=== PATIENT | female | born 1950 | race African-American/Black ===

== ENCOUNTER 2016-07-30 11:07 | Outpatient (CLI) | payer MEDICARE, OTHER ==
[2016-07-30 13:05] LABS: Anion Gap 14 mmol/L (10-20); BUN (Urea Nitrogen) 37 mg/dL (9.8-20.1); Calc. Creatinine Clearance 0 mL/min (70-130); Calcium 8.7 mg/dL (7.8-10.44); Carbon Dioxide 29 mmol/L (23-31); Chloride 105 mmol/L (98-107); Estimated GFR-MDRD 25
== END 2016-07-30 11:08 | disposition home or self-care (01) ==
LOC: NAVSJIPCSP 11:07
PROVIDERS: ATTEND Internal Medicine Nephrology
DX: N18.4 Chronic kidney disease, stage 4 (severe) (principal)
CPT/HCPCS: 36415; 80048

== ENCOUNTER 2016-10-25 12:06 | Outpatient (CLI) | payer MEDICARE, MEDICAID ==
[2016-10-25 14:36] LABS: Anion Gap 16 mmol/L (10-20); BUN (Urea Nitrogen) 58 mg/dL (9.8-20.1); Calc. Creatinine Clearance 0 mL/min (70-130); Calcium 8.7 mg/dL (7.8-10.44); Carbon Dioxide 28 mmol/L (23-31); Chloride 101 mmol/L (98-107); Estimated GFR-MDRD 18; Glucose 96 mg/dL (80-115); Sodium 141 mmol/L (136-145)
== END 2016-10-25 12:07 | disposition home or self-care (01) ==
LOC: NAVSJIPCSP 12:06
PROVIDERS: ATTEND Internal Medicine Nephrology
DX: N18.4 Chronic kidney disease, stage 4 (severe) (principal)
CPT/HCPCS: 80048

== ENCOUNTER 2016-11-06 13:30 | Outpatient (CLI) | payer MEDICARE, OTHER ==
[2016-11-06 13:50] LABS: Anion Gap 17 mmol/L (10-20); BUN (Urea Nitrogen) 62 mg/dL (9.8-20.1); Calc. Creatinine Clearance 0 mL/min (70-130); Calcium 8.7 mg/dL (7.8-10.44); Carbon Dioxide 26 mmol/L (23-31); Chloride 99 mmol/L (98-107); Estimated GFR-MDRD 17; Glucose 85 mg/dL (80-115); Potassium 3.9 mmol/L (3.5-5.1); Sodium 138 mmol/L (136-145)
== END 2016-11-06 13:31 | disposition home or self-care (01) ==
LOC: NAVSJIPCSP 13:30
PROVIDERS: ATTEND Internal Medicine Nephrology
DX: N18.4 Chronic kidney disease, stage 4 (severe) (principal)
CPT/HCPCS: 36415; 80048

== ENCOUNTER 2017-01-11 11:35 | Outpatient (CLI) | payer MEDICARE, OTHER ==
[2017-01-11 12:29] LABS: Anion Gap 14 mmol/L (10-20); BUN (Urea Nitrogen) 57 mg/dL (9.8-20.1); Calc. Creatinine Clearance 0 mL/min (70-130); Calcium 8.7 mg/dL (7.8-10.44); Carbon Dioxide 26 mmol/L (23-31); Chloride 104 mmol/L (98-107); Estimated GFR-MDRD 24; Glucose 92 mg/dL (80-115); Potassium 4.3 mmol/L (3.5-5.1); Sodium 140 mmol/L (136-145)
[2017-01-11 12:39] LABS: Hemoglobin 11.5 g/dL (12.0-16.0)
== END 2017-01-11 11:36 | disposition home or self-care (01) ==
LOC: NAVSJIPCSP 11:35
PROVIDERS: ATTEND Internal Medicine Nephrology
DX: N18.9 Chronic kidney disease, unspecified (principal)
CPT/HCPCS: 36415; 80048; 85014; 85018

== ENCOUNTER 2017-04-04 10:30 | Outpatient (CLI) | payer MEDICARE, OTHER ==
[2017-04-04 11:36] LABS: Hemoglobin 11.5 g/dL (12.0-16.0)
[2017-04-04 11:40] LABS: Anion Gap 14 mmol/L (10-20); BUN (Urea Nitrogen) 37 mg/dL (9.8-20.1); Calc. Creatinine Clearance 0 mL/min (70-130); Carbon Dioxide 29 mmol/L (23-31); Chloride 103 mmol/L (98-107); Estimated GFR-MDRD 20; Glucose 89 mg/dL (80-115); Potassium 4.4 mmol/L (3.5-5.1); Sodium 142 mmol/L (136-145)
== END 2017-04-04 10:31 | disposition home or self-care (01) ==
LOC: NAV LABSP 10:30
PROVIDERS: ATTEND Internal Medicine Nephrology
DX: N18.4 Chronic kidney disease, stage 4 (severe) (principal)
CPT/HCPCS: 36415; 80048; 85014; 85018

== ENCOUNTER 2018-09-28 13:28 | Emergency (ER) | payer MEDICARE, OTHER | END 2018-09-28 14:30 | disposition home or self-care (01) | LOC: NAV ERS 13:28 | DX: I13.0 Hypertensive heart and chronic kidney disease with heart failure and stage 1 through stage 4 chronic kidney disease, or unspecified chronic kidney disease (principal); I50.9 Heart failure, unspecified; E11.22 Type 2 diabetes mellitus with diabetic chronic kidney disease; N18.9 Chronic kidney disease, unspecified; D64.9 Anemia, unspecified; F41.9 Anxiety disorder, unspecified; F32.9 Major depressive disorder, single episode, unspecified; K21.9 Gastro-esophageal reflux disease without esophagitis; Z86.73 Personal history of transient ischemic attack (TIA), and cerebral infarction without residual deficits; Z79.899 Other long term (current) drug therapy | CPT/HCPCS: 99283 ==